=== PATIENT | female | born 1970 | race Caucasian/White ===

== ENCOUNTER 2022-11-17 06:58 | Day surgery (SDC) | payer BC, MEDICAID ==
[~2022-11-17 06:58] MED LIST: Lactated Ringers 1,000 ML IV SCH; Sodium Chloride 0.9% 10 ML Syringe FLUSH PRN; Sodium Chloride 0.9% 10 ML Syringe FLUSH SCH
[2022-11-17] MEDS ORDERED: fentaNYL 100 MCG/2 ML SDV IVPUSH PRN (07:01)
[2022-11-17] MEDS ORDERED: Ondansetron 4 MG/2 ML SDV IVPUSH PRN (07:01)
[2022-11-17] MEDS ORDERED: HYDROmorphone 0.5 MG/0.5 ML Syringe IVPUSH PRN (07:01)
[2022-11-17] MEDS ORDERED: Midazolam 1 MG/ML 2 ML SDV ONE (07:11)
[2022-11-17] MEDS ORDERED: Propofol 200 MG/20 ML SDV ONE (07:11)
[2022-11-17] MEDS ORDERED: Dexamethasone 4 MG/ML 5 ML MDV ONE (07:12)
[2022-11-17] MEDS ORDERED: Ketorolac 30 MG/ML SDV ONE (07:12)
[2022-11-17] MEDS ORDERED: ceFAZolin 2 GM Vial ONE (07:12)
[2022-11-17] MEDS ORDERED: Lidocaine 1% 2 ML ONE (07:12)
[2022-11-17] MEDS ORDERED: Ondansetron 4 MG/2 ML SDV ONE (07:12)
[2022-11-17] MEDS ORDERED: fentaNYL 100 MCG/2 ML SDV ONE (07:12)
[2022-11-17] MEDS ORDERED: Rocuronium 50 MG/5 ML Vial ONE (07:12)
[2022-11-17] MEDS ORDERED: Sugammadex Sodium 200 MG/2 ML VIAL ONE (07:22)
[2022-11-17 07:31] LABS: BASOPHILS ABSOLUTE AUTO 0.04 K/mm3 (0.01-0.08); BASOPHILS PERCENT AUTO 0.5 % (0.1-1.2); EOSINOPHILS ABSOLUTE AUTO 0.15 K/mm3 (0.04-0.36); HEMATOCRIT 44.7 % (34.1-44.9); HEMOGLOBIN 15.2 gm/dl (11.2-15.7); IMMATURE GRAN ABSOLUTE AUTO 0.01 K/mm3 (0.00-0.10); IMMATURE GRAN PERCENT AUTO 0.1 % (<=1.0); LYMPHOCYTES ABSOLUTE AUTO 2.56 K/mm3 (1.18-3.74); LYMPHOCYTES PERCENT AUTO 34.3 % (19.3-51.7); MEAN CORPUSCULAR HEMOGLOBIN 34.1 pg (25.6-32.2); MEAN CORPUSCULAR VOLUME 100.2 fl (79.4-94.8); MEAN PLATELET VOLUME 8.6 fl (9.4-12.3); MONOCYTES PERCENT AUTO 6.7 % (4.7-12.5); NEUTROPHILS ABSOLUTE AUTO 4.21 K/mm3 (1.56-6.13); NEUTROPHILS PERCENT AUTO 56.4 % (34.0-71.1); PLATELET COUNT,PLT 344 K/mm3 (182-369); RED BLOOD CELL COUNT 4.46 M/mm3 (3.98-5.22); WHITE BLOOD CELL COUNT,WBC 7.47 K/mm3 (3.98-10.04)
[2022-11-17] MEDS ORDERED: Bupivacaine 0.5% 30 ML SDV ONE (07:31)
[2022-11-17] MEDS ORDERED: Bupivacaine 0.25%/EPINEPHrine 1:200,000 30 ML SDV ONE (07:31)
[2022-11-17 07:39] LABS: ANION GAP 11.9 (5-15); BUN/CREATININE RATIO 22.9 (14-18); CALCIUM 8.9 mg/dL (8.5-10.1); CREATININE 0.7 mg/dL (0.55-1.02); EST CRCL DRUG DOSING (CG) 78.65 mL/min; POTASSIUM,K 3.9 mEq/L (3.5-5.1)
[2022-11-17] MEDS ORDERED: HYDROmorphone 0.5 MG/0.5 ML Syringe ONE ×2 (08:29→10:00)
[2022-11-17] MEDS ORDERED: Acetaminophen/oxyCODONE 325-5 MG Tab PO PRN (10:40)
[2022-11-17 13:22] VITALS: BP 115/72; PULSE 87
== END 2022-11-17 13:00 | disposition home or self-care (01) ==
LOC: JD.SDS 06:58
PROVIDERS: ATTEND Obstetrics & Gynecology
DX: N83.11 Corpus luteum cyst of right ovary (principal); N83.312 Acquired atrophy of left ovary; D26.9 Other benign neoplasm of uterus, unspecified; N80.03 Adenomyosis of the uterus; N83.8 Other noninflammatory disorders of ovary, fallopian tube and broad ligament; E78.2 Mixed hyperlipidemia; I20.1 Angina pectoris with documented spasm; F17.210 Nicotine dependence, cigarettes, uncomplicated; Z98.51 Tubal ligation status; Z79.899 Other long term (current) drug therapy
CPT/HCPCS: 36415; 58552; 80048; 85025; 86850; 86900; 86901; A9270; J0690; J1100; J1170; J1885; J2250; J2405; J2704; J3010; J3490; J7120; 00944